=== PATIENT | female | born 1985 | race Caucasian/White ===

== ENCOUNTER 2021-03-22 10:18 | Emergency (ER) | payer BC, SELFPAY ==
--- NOTE | ~2021-03-22 | XR_ITS ---
EXAMINATION: XR ankle LT min 3V DATE: 03/22/2021 10:38 INDICATION: Twisting left ankle pain post fall TECHNIQUE: Anteroposterior, oblique, mortise, and lateral views of the left ankle were obtained. COMPARISON: None. FINDINGS: Alignment is normal. No fracture. There is heterotopic ossicles project over the region of the delto id ligament likely sequela of chronic sprain. Joint spaces are well maintained. No ankle joint effus ion. Mild soft tissue swelling about the medial malleolus. IMPRESSION: 1. Findings suggesting acute on chronic deltoid ligament sprain. No fracture. Reviewed, dictated and finalized at location A. [facility]
[2021-03-22 10:22] VITALS: BP 121/70; PULSE 88; RESP 16; TEMP 36.6; O2SAT 100
--- NOTE | 2021-03-22 11:06 | ED.GENADULT ---
HPI - General Adult General Chief complaint: Extremity Injury, Lower <Mechelle Garsia PA-C - Last Filed: 03/22/21 11:22> Stated complaint: left ankle injury, fall <Mechelle Garsia PA-C - Last Filed: 03/22/21 11:22> Time Seen by Provider: 03/22/21 10:25 <Mechelle Garsia PA-C - Last Filed: 03/22/21 11:22> Source: patient and family <Mechelle Garsia PA-C - Last Filed: 03/22/21 11:22> Mode of arrival: ambulatory <Mechelle Garsia PA-C - Last Filed: 03/22/21 11:22> Limitations: no limitations <Mechelle Garsia PA-C - Last Filed: 03/22/21 11:22> History of Present Illness HPI narrative: 35-year-old female who was helping to load a [employer] when she stepped off the ramp and felt a pop in her left ankle. Here for evaluation for possible fracture. She states that she is hurt that ankle several times in the past while playing soccer, never a fracture. She has not tried to bear weight since the incident occurred. <Mechelle Garsia PA-C - Last Filed: 03/22/21 11:22> Onset (ago): hour(s) <Mechelle Garsia PA-C - Last Filed: 03/22/21 11:22> Severity: mild <Mechelle Garsia PA-C - Last Filed: 03/22/21 11:22> Severity scale (1-10): 3 <Mechelle Garsia PA-C - Last Filed: 03/22/21 11:22> Quality: aching <Mechelle Garsia PA-C - Last Filed: 03/22/21 11:22> Pain Consistency: constant <APRIL Orellana Last Filed: 03/22/21 11:22> Relieving factors: cold therapy <Mechelle Garsia PA-C - Last Filed: 03/22/21 11:22> Exacerbating factors: movement <Mechelle Garsia PA-C - Last Filed: 03/22/21 11:22> Associated symptoms: denies other symptoms <Mechelle Garsia PA-C - Last Filed: 03/22/21 11:22> Related Data Allergies/adverse reactions: Allergies Allergy/AdvReac Type Severity Reaction Status Date / Time Penicillins Allergy Mild Swelling Verified 03/22/21 10:35 <Mechelle Garsia PA-C - Last Filed: 03/22/21 11:22> Review of Systems Review of Systems: All systems reviewed & are unremarkable except as noted in HPI and below <Mechelle Garsia PA-C - Last Filed: 03/22/21 11:22> [facility] Social History Social History: Social History (Updated 03/22/21 @ 11:16 by Mechelle Garsia PA-C) Smoking status: Never smoker Alcohol intake: never Substance use: never Living arrangements: with family Additional living arrangements comments: Currently moving to [place] <Mechelle Garsia PA-C - Last Filed: 03/22/21 11:22> Exam Const: General: no acute distress and alert <Mechelle Garsia PA-C - Last Filed: 03/22/21 11:22> Orientation/consciousness: patient oriented x3 <Mechelle Garsia PA-C - Last Filed: 03/22/21 11:22> HENMT: Head: normal to inspection <Mecehlle Garsia PA-C - Last Filed: 03/22/21 11:22> Eyes: Pupils: Equal, round and reactive pupils present <Mechelle Garsia PA-C - Last Filed: 03/22/21 11:22> Resp: Effort & Inspection: normal respiratory effort <Mechelle Garsia PA-C - Last Filed: 03/22/21 11:22> Cardio: Rate: regular rate <Mechelle Garsia PA-C - Last Filed: 03/22/21 11:22> Rhythm: regular rhythm <Mechelle Garsia PA-C - Last Filed: 03/22/21 11:22> Peripheral pulses: popliteal pulses present on the left 2+ <Mechelle Garsia PA-C - Last Filed: 03/22/21 11:22> Skin: General skin exam: normal color <Mechelle Garsia PA-C - Last Filed: 03/22/21 11:22> Extrem: Left lower extremity: normal capillary refill and ankle Details: tenderness Location: of the lateral malleolus, swelling (mild) Details: laterally, normal ROM (mild pain) and ecchymosis (mild lateral malleolus) <Mechelle Garsia PA-C - Last Filed: 03/22/21 11:22> Psych: Mental Status: mental status grossly normal <Mechelle Garsia PA-C - Last Filed: 03/22/21 11:22> Course Course Emergency Course: Reviewed x-rays with patient. She has crutches at home, will wrap and placed in a postop shoe. Recommend stopping frequently while in r
[2021-03-22 11:35] VITALS: BP 112/76; PULSE 80; RESP 18; O2SAT 99
== END 2021-03-22 11:38 | disposition home or self-care (01) ==
PROVIDERS: Emergency Provider Emergency Medicine
DX: S93.402A Sprain of unspecified ligament of left ankle, initial encounter (principal); S96.912A Strain of unspecified muscle and tendon at ankle and foot level, left foot, initial encounter; X50.9XXA Other and unspecified overexertion or strenuous movements or postures, initial encounter
CPT/HCPCS: 73610; 99283